=== PATIENT | female | born 1995 | race Caucasian/White ===

== ENCOUNTER 2017-05-03 04:05 | Emergency (ER) | payer OTHER ==
[~2017-05-03] VITALS: Ht 154.9 cm; Wt 52.2 kg
[2017-05-03 04:05] VITALS: BP 106/75
[2017-05-03] MEDS ORDERED: IV NORMAL SALINE 1,000ML 1,000 ML IV SCH (04:21)
--- NOTE | 2017-05-03 04:21 | ED.ADGEN ---
Adult General Chief Complaint Chief Complaint Abdominal pain HPI HPI Patient is a 21 year old male who presents with abdominal pain. She states last night she had sushi and then around 3 AM developed diffuse abdominal pain. She feels nauseated but hasn't vomited. She denies any past medical history or surgeries. She states nothing makes the pain better or worse diffuse. It's in the right lower quadrant most severe area. She states she's never had discomfort like this before. She denies any vaginal bleeding or discharge. Review of Systems Review of Systems Constitutional: Denies fever or chills [] Eyes: Denies change in visual acuity, redness, or eye pain [] HENT: Denies nasal congestion or sore throat [] Respiratory: Denies cough or shortness of breath [] Cardiovascular: No additional information not addressed in HPI [] GI: Positive for abdominal pain, nausea, denies any vomiting, bloody stools or diarrhea [] : Denies dysuria or hematuria [] Musculoskeletal: Denies back pain or joint pain [] Integument: Denies rash or skin lesions [] Neurologic: Denies headache, focal weakness or sensory changes [] Endocrine: Denies polyuria or polydipsia [] Current Medications Current Medications Current Medications Medications (Trade) Dose Ordered Sig/Negra Start Time Stop Time Status Last Admin Dose Admin Info (Do NOT chart on this entry -- for MONITORING) 1 each PRN DAILY PRN 05/03/17 05:15 05/05/17 05:14 Iohexol (Omnipaque 300 Mg/ml) 75 ml 1X ONCE 05/03/17 05:15 05/03/17 05:16 DC 05/03/17 05:22 75 ML Morphine Sulfate (Morphine 2mg Syringe) 2 mg PRN Q15MIN PRN 05/03/17 04:30 05/04/17 04:29 05/03/17 04:37 2 MG Ondansetron HCl (Zofran) 4 mg 1X ONCE 05/03/17 04:30 05/03/17 05:09 DC 05/03/17 04:30 4 MG Sodium Chloride 1,000 ml @ 1,000 mls/hr Q1H 05/03/17 04:21 05/03/17 05:20 DC 05/03/17 04:21 1,000 MLS/HR Allergies Allergies Allergies Coded Allergies Type Severity Reaction Last Updated Verified No Known Drug Allergies 05/03/17 No Physical Exam Physical Exam Constitutional: Well developed, well nourished, no acute distress, non-toxic appearance. [] HENT: Normocephalic, atraumatic, bilateral external ears normal, oropharynx moist, no oral exudates, nose normal. [] Eyes: PERRLA, EOMI, conjunctiva normal, no discharge. [] Neck: Normal range of motion, no tenderness, supple, no stridor. [] Cardiovascular:Heart rate regular rhythm, no murmur [] Lungs & Thorax: Bilateral breath sounds clear to auscultation [] Abdomen: Bowel sounds normal, soft, tender to palpation in the right lower quadrant, no rebound or guarding, no masses, no pulsatile masses. [] Skin: Warm, dry, no erythema, no rash. [] Back: No tenderness, no CVA tenderness. [] Extremities: No tenderness, no cyanosis, no clubbing, ROM intact, no edema. [] Neurologic: Alert and oriented X 3, normal motor function, normal sensory function, no focal deficits noted. [] Psychologic: Affect normal, judgement normal, mood normal. [] Current Patient Data Vital Signs Vital Signs Date Time Temp Pulse Resp B/P (MAP) Pulse Ox O2 Delivery O2 Flow Rate FiO2 05/03/17 04:37 20 97 Room Air Lab Results Laboratory Tests Test 05/03/17 04:20 White Blood Count 18.7 x10^3/uL (4.0-11.0) H Red Blood Count 4.03 x10^6/uL (3.50-5.40) Hemoglobin 12.5 g/dL (12.0-15.5) Hematocrit 36.9 % (36.0-47.0) Mean Corpuscular Volume 92 fL (79-100) Mean Corpuscular Hemoglobin 31 pg (25-35) Mean Corpuscular Hemoglobin Concent 34 g/dL (31-37) Red Cell Distribution Width 13.8 % (11.5-14.5) Platelet Count 298 x10^3/uL (140-400) Neutrophils (%) (Auto) 69 % (31-73) Lymphocytes (%) (Auto) 24 % (24-48) Monocytes (%) (Auto) 5 % (0-9) Eosinophils (%) (Auto) 2 % (0-3) Basophils (%) (Auto) 0 % (0-3) Neutrophils # (Auto) 12.9 x10^3uL (1.8-7.7) H Lymphocytes # (Auto) 4.5 x10^3/uL (1.0-4.8) Monocytes # (Auto) 0.9 x10^3/uL (0.0-1.1) Eosinophils # (Auto) 0.3 x10^3/uL (0.0-0.7) Basophils # (Auto) 0.1 x10^3/uL (0.0-0.2) Segmented Neutrophils % 62 % (35-66) Band Neutrophils % 5 % (0-9) Lymphocytes % 27 % (24-48) Monocytes % 5 % (0-10) Eosinophils % 1 % (0-5) Platelet Estimate Adequate (ADEQUATE) Prothrombin Time 9.8 SEC (9.4-11.4) Prothrombin Time INR 1.0 (0.9-1.1) PTT 21 SEC (23-33) L Urine Collection Type Unknown Urine Color Yellow Urine Clarity Clear Urine pH 5.0 Urine Specific [place] 1.025 Urine Protein Neg (NEG-TRACE) Urine Glucose (UA) Neg mg/dL (NEG) Urine Ketones (Stick) Neg mg/dL (NEG) Urine Blood Trace (NEG) Urine Nitrite Neg (NEG) Urine Bilirubin Neg (NEG) Urine Urobilinogen Dipstick 0.2 mg/dL (0.2 mg/dL) Urine Leukocyte Esterase Neg (NEG) Urine RBC 0 /HPF (0-2) Urine WBC 5-10 /HPF (0-4) Urine Squamous Epithelial Cells Few /LPF Urine Bacteria Few /HPF (0-FEW) Sodium Level 138 mmol/L (136-145) Potassium Level 3.2 mmol/L (3.5-5.1) L Chloride Level 103 mmol/L (98-107) Carbon Dioxide Level 26 mmol/L (21-32) Anion Gap 9 (6-14) Blood Urea Nitrogen 8 mg/dL (7-20) Creatinine 0.7 mg/dL (0.6-1.0) Estimated GFR (Cockcroft-Gault) 107.8 Glucose Level 102 mg/dL (70-99) H Calcium Level 8.5 mg/dL (8.5-10.1) Total Bilirubin 0.3 mg/dL (0.2-1.0) Direct Bilirubin 0.1 mg/dL (0.0-0.2) Aspartate Amino Transferase (AST) 14 U/L (15-37) L Alanine Aminotransferase (ALT) 16 U/L (14-59) Alkaline Phosphatase 68 U/L (46-116) Creatine Kinase 55 U/L (26-192) Creatine Kinase MB (Mass) < 0.5 ng/mL (0.0-3.6) Creatine Kinase MB Relative Index 0.9 % (0-4) Total Protein 7.5 g/dL (6.4-8.2) Albumin 3.5 g/dL (3.4-5.0) Lipase 106 U/L (73-393) Serum Test, Qualitative Negative (NEG) EKG EKG [] Radiology/Procedures Radiology/Procedures [] Course & Med Decision Making Course & Med Decision Making Pertinent Labs and Imaging studies reviewed. (See chart for details) Show leukocytosis. CT abdomen pelvis and pelvic ultrasound pending at this time. Final disposition to Dr. Mccabe Final Impression Final Impression Abdominal pain Problems: Dragon Disclaimer Dragon Disclaimer This electronic medical record was generated, in whole or in part, using a voice recognition dictation system. BLAKE CUENCA MD May 03, 2017 04:21
[2017-05-03] MEDS ORDERED: ONDANSETRON PF 4 MG/2 ML VIAL. IV ONE (04:30)
[2017-05-03] MEDS: MORPHINE SULFATE 2 MG/ML DISP.SYRIN. IV/SQ PRN ×2 (04:37→06:49)
[2017-05-03 04:38] LABS: BASO # 0.1 x10^3/uL (0.0-0.2); BASO % 0 % (0-3); EOS # 0.3 x10^3/uL (0.0-0.7); EOS % 2 % (0-3); HEMATOCRIT 36.9 % (36.0-47.0); HEMOGLOBIN 12.5 g/dL (12.0-15.5); LYMPH # 4.5 x10^3/uL (1.0-4.8); LYMPH % 24 % (24-48); MEAN CORPUSCULAR HEMOGLOBIN 31 pg (25-35); MEAN CORPUSCULAR HGB CONC 34 g/dL (31-37); MEAN CORPUSCULAR VOLUME 92 fL (79-100); MONO # 0.9 x10^3/uL (0.0-1.1); MONO % 5 % (0-9); NEUT # 12.9 x10^3uL (1.8-7.7); NEUT % 69 % (31-73); PLATELET COUNT 298 x10^3/uL (140-400); RED BLOOD COUNT 4.03 x10^6/uL (3.50-5.40); RED CELL DISTRIBUTION WIDTH 13.8 % (11.5-14.5); WHITE BLOOD COUNT 18.7 x10^3/uL (4.0-11.0)
[2017-05-03 04:42] LABS: COLOR,URINE YELLOW
[2017-05-03 04:43] LABS: BACTERIA,URINE FEW /HPF (0-FEW); BILIRUBIN,URINE NEG (NEG); CLARITY,URINE CLEAR; GLUCOSE,URINE NEG (NEG); NITRITE,URINE NEG (NEG); RBC,URINE 0 /HPF (0-2); SQUAMOUS EPITHELIAL CELL,UR FEW /LPF; UROBILINOGEN,URINE 0.2 mg/dL (0.2 mg/dL)
[2017-05-03 04:56] LABS: % BANDS 5 % (0-9); % EOS 1 % (0-5); % LYMPHS 27 % (24-48); % MONOS 5 % (0-10); % SEGS 62 % (35-66); ALBUMIN 3.5 g/dL (3.4-5.0); ALK PHOS 68 U/L (46-116); ALT (SGPT) 16 U/L (14-59); ANION GAP 9 (6-14); AST (SGOT) 14 U/L (15-37); BLOOD UREA NITROGEN 8 mg/dL (7-20); CALCIUM 8.5 mg/dL (8.5-10.1); CARBON DIOXIDE 26 mmol/L (21-32); CHLORIDE 103 mmol/L (98-107); CREATINE KINASE 55 U/L (26-192); CREATININE 0.7 mg/dL (0.6-1.0); DIRECT BILIRUBIN 0.1 mg/dL (0.0-0.2); GFR 107.8; GLUCOSE 102 mg/dL (70-99); LIPASE 106 U/L (73-393); PLT ESTIMATE ADEQUATE (ADEQUATE); POTASSIUM 3.2 mmol/L (3.5-5.1); SODIUM 138 mmol/L (136-145); TOTAL BILIRUBIN 0.3 mg/dL (0.2-1.0); TOTAL PROTEIN 7.5 g/dL (6.4-8.2)
[2017-05-03 04:57] LABS: PREG TEST PT QUAL NEGATIVE (NEG)
[2017-05-03] MEDS ORDERED: IOHEXOL 300 MG/ML 75 ML VIAL. IV ONE (05:15)
[2017-05-03] MEDS ORDERED: CONTRAST GIVEN MC PRN (05:15)
--- NOTE | 2017-05-03 06:08 | RAD ---
Examination: CT abdomen and pelvis with IV contrast HISTORY: History of right lower quadrant abdominal pain COMPARISON: None available TECHNIQUE: Axial CT images of the abdomen and pelvis were performed with IV contrast. Coronal and sagittal reformatted. Exposure: One or more of the following individualized dose reduction techniques were utilized for this examination: 1. Automated exposure control 2. Adjustment of the mA and/or kV according to patient size 3. Use of iterative reconstruction technique FINDINGS: The visualized bibasilar lungs grossly appears unremarkable. No evidence of free air identified in the abdomen. The visualized liver demonstrates mild edema along the intrahepatic bile ducts. The gallbladder is mildly distended. The visualized spleen, and adrenals grossly appears unremarkable. The stomach is mildly distended. The kidneys enhance symmetrically. The small bowel is nondilated. Feces and gas present throughout the colon. There is enhancement of the encinas of the appendix with the appendix being fluid distended and mildly dilated measuring 9 mm in transverse dimension. There is mild inflammatory fat stranding identified about the appendix. The caliber of the aorta grossly appears unremarkable. The bladder is mildly distended. Small amount of free fluid identified in the pelvis. No evidence of any bony destructive lesion. IMPRESSION: 1. Enhancement of the wall of the appendix with dilated appearing appendix measuring 9 mm in transverse dimension with minimal surrounding fat stranding likely acute appendicitis. Electronically signed by: Horace Hare MD (05/03/2017 6:05 AM)
--- NOTE | 2017-05-03 06:20 | RAD ---
Examination: Ultrasound pelvis HISTORY: History of right lower quadrant pain. COMPARISON: None available Technique: Transabdominal, transvaginal ultrasonogram of the pelvis. FINDINGS: The uterus measures 9.1 x 5.4 x 4.3 cm. The endometrium is 2.2 mm in transverse dimension. The right ovary measures 2.8 x 2 0.1 to 1.2 cm. The left ovary measures 2.8 x1.8 x 1.4 cm. Blood flow in the right and left ovaries Small amount of free fluid identified in the right adnexa. Sliver of fluid identified in the cervix. IMPRESSION: 1. Small amount of free fluid identified in the right adnexa. Otherwise unremarkable exam. Electronically signed by: Horace Hare MD (05/03/2017 6:17 AM)
== END 2017-05-03 07:17 | disposition short-term general hospital (02) ==
LOC: ER 04:05
DX: K35.80 Unspecified acute appendicitis (principal)
CPT/HCPCS: 36415; 74177; 76830; 76856; 80048; 80076; 81001; 82553; 83690; 84703; 85007; 85027; 85610; 85730; 87086; 96361; 96374; 96375; 96376; 99285; J2270; J2405; Q9967; J7030